=== PATIENT | male | born 1995 | race Caucasian/White ===

== ENCOUNTER 2019-01-25 09:38 | Emergency (ER) | payer MEDICAID ==
[~2019-01-25] VITALS: Ht 180.3 cm; Wt 86.4 kg
[2019-01-25 10:00] VITALS: Ht 180.3 cm; Wt 86.4 kg
[2019-01-25] MEDS ORDERED: GENTAK3.5 GM LEFT EYE (11:01)
[2019-01-25] MEDS ORDERED: PREDNISONE20 MG PO (11:01)
[2019-01-25 11:31] VITALS: BP 116/74
== END 2019-01-25 11:15 | disposition home or self-care (01) ==
LOC: D.ER 09:38
DX: H10.32 Unspecified acute conjunctivitis, left eye (principal)

== ENCOUNTER 2019-02-16 20:38 | Inpatient (IN) | payer MEDICAID ==
[~2019-02-16] VITALS: Ht 180.3 cm; Wt 88.5 kg
[~2019-02-16 20:38] MED LIST: GENTAK3.5 GM LEFT EYE; PREDNISONE20 MG PO
[2019-02-16] MEDS ORDERED: KEFLEX500 MG PO (20:58)
[2019-02-16] MEDS ORDERED: SULFAMETHOXAZOL1 TA2 PO (20:59)
[2019-02-16 21:23] LABS: BASOPHILS 0.1 % (0-2); HEMATOCRIT 43.3 % (42.0-54.0); HEMOGLOBIN 15.4 g/dL (13.5-17.5); IMMATURE GRANULOCYTES 0.2 % (0-5); LYMPHOCYTES 13.6 % (15-50); MCH 30.1 pg (26.0-34.0); MCHC 35.6 g/dL (31.0-37.0); MCV 84.6 fL (80.0-100.0); MEAN PLATELET VOLUME 10.3 fL (7.4-10.4); MONOCYTES 4.6 % (2-11); NEUTROPHILS 80.5 % (40-80); PLATELET COUNT 156 10x3/uL (130-400); RBC 5.12 10x6/uL (4.20-6.10); RDW 13.1 % (11.5-14.5); WBC 10.4 10x3/uL (4.8-10.8)
[2019-02-16 21:52] LABS: ALBUMIN 2.9 g/dL (3.4-5.0); ALKALINE PHOSPHATASE 85 U/L (46-116); ALT (SGPT) 15 U/L (10-68); BILIRUBIN - TOTAL 0.43 mg/dL (0.2-1.3); CALC OSMOLALITY 268 mosm/kg (275-300); CALCIUM 8.9 mg/dL (8.5-10.1); CARBON DIOXIDE 27.2 mmol/L (21.0-32.0); CHLORIDE - SERUM 99 mmol/L (98-107); CREATININE - SERUM 0.9 mg/dL (0.6-1.3); GLUCOSE 93 mg/dL (74-106); POTASSIUM - SERUM 3.2 mmol/L (3.5-5.1); SODIUM 135 mmol/L (136-145); UREA NITROGEN 10 mg/dL (7-18); eGFR NON AFRICAN AMERICAN > 90 mL/min (90-120)
[2019-02-17] VITALS (11 sets, daily range): BP systolic 100–147; BP diastolic 43–87; BMI 27.2
--- NOTE | 2019-02-17 00:18 | NUR ---
INFUSION OF ZOSYN COMPLETE AT 0014.
[2019-02-17 00:31] LABS: ERYTHROCYTE SEDIMENTATION RATE 4 mm/hr (0-15)
--- NOTE | 2019-02-17 00:50 | NUR ---
RECEIVED TO ROOM VIA WHEELCHAIR FROM ER. ALERT ORIENTED. RESP UNLABORED.RIGHT KNEE RED AND EDEMATOUS.WARM TO TOUCH. SL TO RFA WIHTOUT REDNESS OR EDEMA NOTED.CL IN REACH
[2019-02-17 04:07] LABS: BASOPHILS 0.1 % (0-2); HEMATOCRIT 39.9 % (42.0-54.0); HEMOGLOBIN 14.1 g/dL (13.5-17.5); IMMATURE GRANULOCYTES 0.2 % (0-5); LYMPHOCYTES 14.3 % (15-50); MCH 29.6 pg (26.0-34.0); MCHC 35.3 g/dL (31.0-37.0); MCV 83.8 fL (80.0-100.0); MEAN PLATELET VOLUME 10.3 fL (7.4-10.4); MONOCYTES 5.7 % (2-11); NEUTROPHILS 78.7 % (40-80); PLATELET COUNT 162 10x3/uL (130-400); RBC 4.76 10x6/uL (4.20-6.10); RDW 13.1 % (11.5-14.5); WBC 8.7 10x3/uL (4.8-10.8)
[2019-02-17 04:22] LABS: ALBUMIN 2.4 g/dL (3.4-5.0); ALKALINE PHOSPHATASE 77 U/L (46-116); ALT (SGPT) 17 U/L (10-68); BILIRUBIN - TOTAL 0.51 mg/dL (0.2-1.3); CALC OSMOLALITY 272 mosm/kg (275-300); CALCIUM 8.4 mg/dL (8.5-10.1); CARBON DIOXIDE 24.9 mmol/L (21.0-32.0); CHLORIDE - SERUM 102 mmol/L (98-107); CREATININE - SERUM 0.8 mg/dL (0.6-1.3); GLUCOSE 104 mg/dL (74-106); POTASSIUM - SERUM 3.5 mmol/L (3.5-5.1); PROTEIN - SERUM 6.1 g/dL (6.4-8.2); SODIUM 137 mmol/L (136-145); UREA NITROGEN 9 mg/dL (7-18); eGFR NON AFRICAN AMERICAN > 90 mL/min (90-120)
--- NOTE | 2019-02-17 09:00 | NUR ---
ALERT AND ORIENTEDX4 WITH COMPLAINTS OF RLE PAIN. ERRYTHERMA AND EDEMA NOTED TO RLE OF KNEE AND ABLOVE AND BELOW. WITH TENDERNESS NOTED. dR. CANNON NOTIFIED FOR PAIN MANAGEMENT WITH NEW ORDER TO CHANGE TO DILAUDID. FAMILY PRESENT AND ENCOURAGED TO USE CALL LIGHT FOR ASSIST. CONTINUES NPO STATUS.
[2019-02-18] VITALS (7 sets, daily range): BP systolic 103–148; BP diastolic 58–87
--- NOTE | 2019-02-18 02:14 | OP ---
PATIENT NAME: SOBEIDA LEE MEDICAL RECORD: [id number] :[birth year] LOCATION:D.MS [id number] ADMISSION DATE:02/16/19 SURGEON: CALE CANNON DO DATE OF OPERATION: 02/17/2019 PROCEDURE PERFORMED: Right knee incision and debridement. PREOPERATIVE DIAGNOSIS: Right septic knee. POSTOPERATIVE DIAGNOSIS: Right septic knee. INDICATIONS: Mr. Lee is a 24-year-old male that fell and sustained a laceration to his right knee last Wednesday. He went to an ER where he was stitched up and then returned 2 days later having redness at the area. They gave him more oral antibiotics. He then came to the Emergency Room at [facility] with purulence pouring out of his knee and erythema, cellulitis all the way down his leg. He was admitted, put on vancomycin and Zosyn and put on the schedule for today. He had increased CRP and ESR; however, his white count did not go up, but due to the purulence, decided we do an I&D and due to the erythema and the cellulitis been of right choice. He was informed of the risks including continued infection, need for further surgery, damage to nerves and vessels in the area, loss of cartilage, damage to the knee itself and he signed the consent and the continued need for IV antibiotics. SURGEON: Cale Cannon DO DESCRIPTION OF PROCEDURE: The patient was taken to the operative suite, laid in supine position, given general anesthetic. He was already on antibiotics on the floor. The right lower extremity was prepped and draped in a sterile fashion. Timeout was performed. Everyone was in agreeance with the correct side, site, patient and procedure. Incision began over the laceration and it was extended proximally and distally. As soon as we made the incision, purulence came pouring out. This was cultured and then the infection tracked almost circumferentially around the knee, pockets of purulent fluid. This was irrigated with 3 liters of normal saline. Then, the knee joint capsule itself was swollen and a medial parapatellar approach was done, but purulence came out of there as well and this was cultured as well and then 6 more liters of fluid were used 4-1/2 in the knee and 4-1/2 outside of the knee to irrigate it. A large drain was then placed in the knee joint coming out the lateral aspect. Then the capsular incision was closed with #2 Ethibond in [id number] fashion. A drain was then placed on the layer above the capsule and brought it through the lateral knee as well. The skin was then closed with 2-0 Vicryl in an inverted interrupted fashion and then a ZipLine was placed on the knee. Adaptic, 4 x 4s, ABD, Webril and Tomy wrap were then wrapped around the knee. The drains were secured with Tegaderms. He was awakened and taken to recovery in stable condition. Blood loss was [id number] mL. COMPLICATIONS: None. TRANSINT:[id number] Voice Confirmation ID: [id number] DOCUMENT ID: [id number] OPERATIVE REPORT [id number] SOBEIDA LEE MICHAEL D, DO at 0214 CC: [id number] DICTATION DATE: 02/17/192135 HEEL GOUGER: 02/17/19 3403 ADM IN [facility] [address] [place] [address]
[2019-02-18 06:47] LABS: HEMATOCRIT 34.1 % (42.0-54.0); HEMOGLOBIN 11.7 g/dL (13.5-17.5); MCH 29.2 pg (26.0-34.0); MCHC 34.3 g/dL (31.0-37.0); MEAN PLATELET VOLUME 10.3 fL (7.4-10.4); RBC 4.01 10x6/uL (4.20-6.10); WBC 7.1 10x3/uL (4.8-10.8)
--- NOTE | 2019-02-18 07:44 | NUR ---
PT LYING IN BED, TOOL GRINDER SET UP OPERATOR GEAR EMPTY, CHANGED TOOL GRINDER SET UP OPERATOR GEAR FOR PT, PT STATED PAIN IS STILL AT A 10 WILL SEE IF HE HAS BREAKTHROUGH PAIN MEDS ORDERED, SITE IS RED AND SWOLLEN. WARM TO TOUCH, PT STATED HE HAS NOT URINATED SINCE BEGINNING OF SURGERY AND PAIN IS SO BAD THAT IT HURTS TO EVEN GET STREAM GOING. STATES HE DOES NOT HAVE THE URGE TO URINATE AT THIS TIME BUT WILL LET ME KNOW WHEN HE DOES, NO ABD PAIN VOICED, SOFT TO TOUCH WILL CONTINUE TO MONITOR.
--- NOTE | 2019-02-18 18:50 | NUR ---
PT WAS GIVEN IMG OF DILAUDID AFTER IV WAS RESITED AND PT FRIEND JUST CAME TO DESK STATING PT IS STILL IN A LOT OF PAIN. HAVE BEEN ALTERNATING BETWEEN ALL OF PATIENTS MEDS WILL SEE WHAT DR CANNON WOULD LIKE TO DO NEXT. CL IN REACH FRIEND AT BEDSIDE
--- NOTE | 2019-02-18 19:14 | NUR ---
I have reviewed this patient and I concur with the Shift Assessment completed by the Licensed Practical Nurse today this shift.
--- NOTE | 2019-02-18 19:53 | NUR ---
PATIEN IN BED SLEEPING, WITH NO NEEDS NOTED OR STATED MOTHER AT BEDSIDE. CALL LIGHT IN REACH. IV INTACT AND PATEN. DRAINS IN PLACE TO RIGHT KNEE.
[2019-02-19] VITALS: BP 110/68
--- NOTE | 2019-02-19 01:01 | NUR ---
PT C/O NOT HAVING MUCH URIN OUT TODAY, AND WAS UNABLE TO URNAITE. BLADDER SCAN DONE WITH 771ML SHOWING CALL TO DR CANNON WITH NEW ORDER FOR IN OUT CATH . IN AND OUT CATH COMPLETED WITH 800 ML OF TAMARA UREN OUT.
[2019-02-19 04:00] VITALS: BP 114/67
[2019-02-19 06:59] LABS: HEMATOCRIT 34.3 % (42.0-54.0); MCH 29.1 pg (26.0-34.0); MCV 83.1 fL (80.0-100.0); MEAN PLATELET VOLUME 10.5 fL (7.4-10.4); RBC 4.13 10x6/uL (4.20-6.10); RDW 12.8 % (11.5-14.5); WBC 4.9 10x3/uL (4.8-10.8)
[2019-02-19 08:32] VITALS: BP 115/61
--- NOTE | 2019-02-19 10:42 | NUR ---
RECEIVED CALL FROM LUIS ANGEL IN PHARMACY, PT VAN TROUGH STATES 139 PT STATES HE HAD TO HAVE IN AND OUT DONE THIS MORNING DUE TO BLADDER SCAN SHOWED 800 BUT HE JUST DOESNT WANT TO URINATE DUE TO PAIN IN KNEE, PT STATES PAIN IS AT A 7 AND REQUESTED PRN PAIN MEDS, ADMINISTERED IV MEDS, NO OTHER NEEDS PLACED ORDER FOR STAT LABS TO [facility] BMP STAT. CONTIUE WITH PLAN OF CARE
[2019-02-19 11:26] LABS: ALBUMIN 1.7 g/dL (3.4-5.0); ANION GAP 15.2 mmol/L (8-16); BILIRUBIN - TOTAL 0.68 mg/dL (0.2-1.3); CALCIUM 7.7 mg/dL (8.5-10.1); CREATININE - SERUM 6.2 mg/dL (0.6-1.3); POTASSIUM - SERUM 4.2 mmol/L (3.5-5.1); PROTEIN - SERUM 4.5 g/dL (6.4-8.2)
[2019-02-19 11:51] LABS: VANCOMYCIN - TROUGH 59.2 ug/mL (10.0-20.0)
--- NOTE | 2019-02-19 12:51 | NUR ---
PT LYING IN BED STATED HE HAS GOTTEN UP TO USE RESTROOM BUT STILL ONLY GOING A LITTLE. PT HAS SODAS ON BEDSIDE AND HAS ONLY DRANK A LITTLE. INCREASED 1/2 NS TO [address] CANNON AND GAVE PT TALL CUP OF ICE WATER AND ENCOURAGED HIM TO DRINK MUCH HE CAN OFTEN HE CAN. CL IN REACH CONTINUE WITH PLAN OF CARE PT STATES PAIN IS OK WHEN LYING STILL BUT WHEN HE MOVES IT SHOOTS TO A 7.
[2019-02-19 13:28] VITALS: BP 101/53
--- NOTE | 2019-02-19 14:06 | NUR ---
I have reviewed this patient and I concur with the Shift Assessment completed by the Licensed Practical Nurse today this shift.
[2019-02-19 15:06] VITALS: Ht 180.3 cm; Wt 88.5 kg
--- NOTE | 2019-02-19 16:01 | NUR ---
PT WAS SEEN BY DR JACOBO AND EXPLAINED HOW LAB WORK IS SHOWING THAT KIDNEY FUNCTION IS NOT UP TO PAR. EXPLAINED THAT CATHETER WOULD BE BEST FOR PT SINCE HE IS NOT URINATING WELL. PT WAS VERY UPSET ABOUT HAVING CATHETER PLACED BUT THEN AGREED TO HAVE IT DONE. HAD [address]ER[address] PLACE CATHETER SO PT WOULD FEEL BETTER ABOUT HAVING CATHETER. OUTPUT WAS 800 WHEN CATHETER PLACED. PT STATED PAIN IS AT A 5 RIGHT NOW. CONTINUE WITH PLAN OF CARE
[2019-02-19 20:00] VITALS: BP 135/73
--- NOTE | 2019-02-19 22:17 | NUR ---
PATIENT ALERT AND ORENTED ABLE TO VOICE NEEDS TO STAFF. C/O NEEDING TO PEE. F/C IN PLACE AND PATEN WITH YELLOW URINE TO BAG. BLADER SCAN COMPLETED WITH 7 ML OF URIN SHOWN. EDUCATED PATIENT THAT HIS BLADDER MY BE SORE DUE TO HOLDING URIN. C/O NOT HAVING A BM YET AND NEEDING TO. REDUCATED HIM THAT WAS WHY HE WAS PLACED ON THE SENOKOT , HE HAD REFUSED LAST NIGHT. THAT WITH PAIN MEDACATION CAN INCREASE CONSTIPATION. THAT IT IS IMPORTANT TO DRING FLUIDS, TAKE HIS STOOL SOFNERS AND MOVEMENT WILL HELP. PT STATED HE UNDERSTOD.
[2019-02-20 04:00] VITALS: BP 130/70
[2019-02-20 06:04] LABS: BASOPHILS 0.2 % (0-2); EOSINOPHILS 1.2 % (0-7); HEMATOCRIT 32.3 % (42.0-54.0); HEMOGLOBIN 11.7 g/dL (13.5-17.5); IMMATURE GRANULOCYTES 0.2 % (0-5); LYMPHOCYTES 24.3 % (15-50); MCH 29.3 pg (26.0-34.0); MCHC 36.2 g/dL (31.0-37.0); MEAN PLATELET VOLUME 10.6 fL (7.4-10.4); NEUTROPHILS 63.1 % (40-80); RDW 12.3 % (11.5-14.5); WBC 4.2 10x3/uL (4.8-10.8)
[2019-02-20 06:10] LABS: MCV 80.8 fL (80.0-100.0); PLATELET COUNT 212 10x3/uL (130-400)
[2019-02-20 06:38] LABS: ALBUMIN 1.6 g/dL (3.4-5.0); ANION GAP 20.4 mmol/L (8-16); BILIRUBIN - TOTAL 0.69 mg/dL (0.2-1.3); CALCIUM 7.8 mg/dL (8.5-10.1); CARBON DIOXIDE 16.7 mmol/L (21.0-32.0); CREATININE - SERUM 7.4 mg/dL (0.6-1.3); POTASSIUM - SERUM 4.1 mmol/L (3.5-5.1); PROTEIN - SERUM 5.4 g/dL (6.4-8.2)
[2019-02-20 07:04] LABS: VANCOMYCIN - RANDOM 60.5 ug/mL (10.0-20.0)
[2019-02-20 08:41] VITALS: BP 144/78
[2019-02-20 14:01] VITALS: BP 142/80
--- NOTE | 2019-02-20 15:56 | NUR ---
PATIENT COMPLAINING ABOUT RIGHT ANKLE SWELLING. STATED THAT HE HAD HIS MOM TOOK MIRACLE WRAP OFF BECAUSE IT WAS HURTING HIM. CALLED DR. CANNON AND TOLD HIM THAT PATIENT IS WORRIED ABOUT ANKLE BEING SWOLLEN AND TOOK MIRACLE WRAP OFF OF IT. PHYSICIAN STATED THAT HE JUST PUT THAT MIRACLE WRAP BACK ON THE ANKLE THIS AM BC HE WAS TRYING TO DECREASE THE SWELLING. EXPLAINED TO PATIENT AT THIS TIME. VERBALIZED UNDERSTANDING. ELEVATED RIGHT FOOT ON PILLOW AND WENT TO GET ANOTHER PILLOW, WHEN CAME BACK IN ROOM MOTHER STATED THAT HER AND SON WANT HIM TO BE TRANSFERRED TO ANOTHER HOSPITAL. STATED HE HASNT HAD A BATH, OR A BOWEL MOVEMENT, AND THAT THEY ARE WORRIED ABOUT HIS KIDNEYS BECAUSE OF THE ANKLE SWELLING ON THE RIGHT. SPOKE WITH CM, AND THEN TO NM. SPOKE BACK WITH PATIENT AND MOTHER AND EXPLAINED THAT IN ORDER FOR THEM TO GO TO ANOTHER HOSPITAL THAT THEY WOULD HAVE TO FIND A RECIEVING PHYSICIAN OR LEAVE AMA AND JUST GO TO ANOTHER HOSPITAL. VERBALIZED UNDERSTANDING. ALSO TOLD THEM THAT I COULD CALL DR. JACOBO OR HIS GUM WORKER AND HAVE THEM COME TALK TO THEM. MOTHER STATED SHE WOULD JUST CALL [facility] AND GET A DOCTOR.
--- NOTE | 2019-02-20 16:30 | NUR ---
RADIOLOGICAL TECHNICIAN OFFERED SHOWER TO PATIENT AT THIS TIME. PATIENT REFUSED.
--- NOTE | 2019-02-20 16:44 | MORECARE ---
CASE MANAGEMENT DISCHARGE SUMMARY PATIENT: SOBEIDA LEE UNIT: [id number] ADM DATE: 02/16/19 AGE: 24 : [birth year] SEX: M ROOM/BED: D.2223 AUTHOR: DIOR REID PHYSICIAN: REFERRING PHYSICIAN: MELANY CANNON DO DATE OF SERVICE: 02/20/19 Discharge Plan Patient Name: SOBEIDA LEE Facility: [facility]:[place] : 1995 Planned Disposition: Anticipated Discharge Date: Discharge Date: Expected LOS: Initial Reviewer: [id number] Initial Review Date: 02/20/2019 Generated: 02/20/19 5:44 pm Comments DCP- Discharge Planning Updated by [id number]: Rand Brooks on 02/20/19 3:[address] Patient Name: SOBEIDA LEE Admission Status: ER Accout number: [id number] Admission Date: 02-16-2019 : 1995 Admission Diagnosis:PYOGENIC ARTHRITIS, UNSPECIFIED Attending: MELANY CANNON Current LOS: 4 Anticipated DC Date: Planned Disposition: Primary Insurance: MEDICAID [place] Discharge Planning Comments: CM SPOKE WITH PATIENT AND MOTHER PER THEIR REQUEST. THEY WANT TO BE TRANSF[facility]ED TO [facility] FOR FURTHER CARE. I SPOKE TO PATIENT AND MOTHER AND EXPLAINED TO THEM THAT IF HE IS TRANSFERED AND ITS NOT FOR HIGHER LEVEL OF CARE THAT THEY WOULD BE RESPONSIBLE FOR PAYMENT OF TRANSPORT BY EMS. MOTHER STATES SHE WOULD AGREE TO THAT. I ALSO EXPLAINED TO THEM THAT THERE MUST BE AN ACCEPTING PHYSICIAN AT THE OTHER FACILITY ALSO. DR CANNON IS COMING TO SEE PATIENT TODAY AND I WILL INFORM THE NURSE OF THIS. Assistant Professor Of Art: Rand Brooks DCPIA - Discharge Planning Initial Assessment Updated by [email or web address]: Rand Brooks on 02/20/19 4:39 pm * Is the patient Alert and Oriented? Yes * PCP NONE * Pharmacy [facility] * Preadmission Environment Home Alone * ADLs Independent * Additional services required to return to the preadmission environment? Yes * Can the patient safely return to the preadmission environment? No * Has this patient been hospitalized within the prior 30 days at any hospital? No Patient Name: SOBEIDA LEE Page [id number] at 1644 All edits/amendments must be made on the electronic document DICTATION DATE: 02/20/191643 CREATIVE INTERN: DESIRE 02/20/191643 RPT#: [id number] DC DATE: STATUS: ADM IN [facility] [address] [place] [address] END OF REPORT
--- NOTE | 2019-02-20 17:00 | NUR ---
DR CANNON IN ROOM SPEAKING WITH PATIENT ABOUT BEING TRANSFERRED TO [facility]. MOTHER AT SIDE.
[2019-02-20 17:15] VITALS: BP 156/82
[2019-02-20 18:04] LABS: APPEARANCE CLEAR (CLEAR); BILIRUBIN NEGATIVE (NEGATIVE); COLOR YELLOW (YELLOW); GLUCOSE NEGATIVE (NEGATIVE); KETONE NEGATIVE (NEGATIVE); NITRITE NEGATIVE (NEGATIVE); PROTEIN TRACE mg/dL (NEGATIVE); UROBILINOGEN NORMAL (NORMAL)
--- NOTE | 2019-02-20 19:30 | NUR ---
PT LAYING IN BED WITH MOTHER AT BEDSIDE. NO SIGNS OF DISTRESS NOTED, A/O. VOICES NO PAIN OR OTHER NEEDS AT THIS TIME. WILL CONTINUE TO MONITOR.
[2019-02-20 20:00] VITALS: BP 175/91
--- NOTE | 2019-02-21 03:00 | NUR ---
ASSESSED TEMP, 99.2 AND PT SHIVERING. TOOK OFF BLANKET AND ENCOURAGED COOL FLUIDS. WILL CONTINUE TO MONITOR.
--- NOTE | 2019-02-21 06:30 | NUR ---
REASSESSED TEMP- 100.1, MOTHER REQUESTION MEDICATION TO LOWER TEMP. PAGED WINDER TENDER DOCTOR. WILL PASS ON IN REPORT FAMILY'S CONCERN. CONTINUE WITH PLAN OF CARE.
[2019-02-21 06:57] LABS: BASOPHILS 0.2 % (0-2); EOSINOPHILS 1.2 % (0-7); HEMATOCRIT 29.5 % (42.0-54.0); HEMOGLOBIN 10.9 g/dL (13.5-17.5); IMMATURE GRANULOCYTES 0.4 % (0-5); LYMPHOCYTES 15.7 % (15-50); MCH 29.4 pg (26.0-34.0); MCHC 36.9 g/dL (31.0-37.0); MCV 79.5 fL (80.0-100.0); MEAN PLATELET VOLUME 10.3 fL (7.4-10.4); MONOCYTES 7.6 % (2-11); NEUTROPHILS 74.9 % (40-80); RBC 3.71 10x6/uL (4.20-6.10); RDW 12.5 % (11.5-14.5); WBC 4.9 10x3/uL (4.8-10.8)
[2019-02-21 07:23] LABS: PLATELET COUNT 269 10x3/uL (130-400)
[2019-02-21 07:53] LABS: ALBUMIN 2.1 g/dL (3.4-5.0); ANION GAP 18.5 mmol/L (8-16); BILIRUBIN - TOTAL 0.46 mg/dL (0.2-1.3); CARBON DIOXIDE 23.1 mmol/L (21.0-32.0); CREATININE - SERUM 8.4 mg/dL (0.6-1.3); POTASSIUM - SERUM 3.6 mmol/L (3.5-5.1); PROTEIN - SERUM 5.1 g/dL (6.4-8.2); VANCOMYCIN - RANDOM 42.7 ug/mL (10.0-20.0)
--- NOTE | 2019-02-21 08:08 | NUR ---
PATIENT O2 LEVEL IN 80'S O2 PLACED. EXPLAINED TO PATIENT THAT HE NEEDED TO WORK ON HIS IS AND GET OUT OF BED TODAY AND SIT IN THE CHAIR. MOTHER AT BEDSIDE. STATED THAT IS WHAT THE DOCTOR SAID ALSO. PATIENT DID NOT RESPOND. IV INTACT. CALL LIGHT WITHIN REACH.
[2019-02-21 09:33] VITALS: BP 130/69
--- NOTE | 2019-02-21 10:01 | NUR ---
PATIENT OUT OF SHOWER AT THIS TIME. DRESSING TO KNEE CHANGED DUE TO OLD DRAINAGE ON DRESSING. NEW DRESSING APPLIED TO CLEAN INCISION. PATIENT REFUSES TO HAVE LEG WRAPPED FROM ANKLE TO KNEE DIRECTED BY PHYSICIAN. STATED THAT HE DOESNT WANT IT DONE BECAUSE IT IS TOO TIGHT AND CUTS OFF HIS CIRCULATION. MOTHER STATED THAT HIS LEG WAS DEFINATELY WRAPPED TO TIGHT BECAUSE IT IS PURPLE. EXPLAINED TO MOTHER THE LEG IS THAT COLOR DUE TO TRAMA AND SWELLING. EXPLAINED IF HIS CIRCULATION WERE BAD HIS LEG AND FOOT WOULD BE COLD AND THAT HE WOULDNT HAVE A PEDAL PULSE, WHICH PEDAL PULSE IS STRONG RIGHT NOW. PATIENT STATED HE DID NOT WANT IT DONE.
[2019-02-21 16:35] VITALS: BP 133/80
--- NOTE | 2019-02-21 18:32 | NUR ---
PATIENT IN BED WITH EYES CLOSED RESTING QUIETLY. IV INTACT. CALL LIGHT WITHIN REACH.
--- NOTE | 2019-02-21 19:40 | NUR ---
LAYING IN BED WITH MOTHER AT BEDSIDE. A/O AND SHOWS NO SIGNS OF DISTRESS. HINKLE IN PLACE WITH CLEAR YELLOW URINE. REDNESS AND SWELLING NOTED IN THE RIGHT LEG. DENIES PAIN OR OTHER NEEDS AT THIS TIME. CONTINUE WITH PLAN OF CARE.
[2019-02-21 20:00] VITALS: BP 157/81
[2019-02-22] VITALS: BP 159/82
[2019-02-22 04:45] LABS: BASOPHILS 0.3 % (0-2); EOSINOPHILS 2.1 % (0-7); HEMATOCRIT 27.4 % (42.0-54.0); HEMOGLOBIN 9.9 g/dL (13.5-17.5); IMMATURE GRANULOCYTES 0.6 % (0-5); LYMPHOCYTES 17.7 % (15-50); MCH 28.5 pg (26.0-34.0); MCHC 36.1 g/dL (31.0-37.0); MEAN PLATELET VOLUME 10.1 fL (7.4-10.4); NEUTROPHILS 68.3 % (40-80); PLATELET COUNT 268 10x3/uL (130-400); RBC 3.47 10x6/uL (4.20-6.10); RDW 12.3 % (11.5-14.5)
[2019-02-22 05:00] LABS: ALBUMIN 2.2 g/dL (3.4-5.0); BILIRUBIN - TOTAL 0.46 mg/dL (0.2-1.3); CALCIUM 7.9 mg/dL (8.5-10.1); CREATININE - SERUM 8.5 mg/dL (0.6-1.3); POTASSIUM - SERUM 3.1 mmol/L (3.5-5.1); PROTEIN - SERUM 5.5 g/dL (6.4-8.2); VANCOMYCIN - RANDOM 38.8 ug/mL (10.0-20.0)
[2019-02-22 05:01] LABS: ANION GAP 16.2 mmol/L (8-16); CARBON DIOXIDE 28.9 mmol/L (21.0-32.0)
--- NOTE | 2019-02-22 09:00 | NUR ---
PATIENT IS ALERT/ORIENT. CALL LIGHT WITHIN REACH. VOICES NO NEEDS AT THIS TIME. ANALISA CONTINUE WITH PLAN OF CARE
[2019-02-22 09:11] VITALS: BP 149/88
[2019-02-22 10:10] LABS: FUNGUS STAIN Final report (())
[2019-02-22 12:47] VITALS: BP 132/78
--- NOTE | 2019-02-22 15:24 | NUR ---
NUTRITION F/U PT TOLERATING REG DIET WITH GOOD INTAKE RECENT MEALS. WILL CONTINUE TO HONOR FOOD PREFERENCES, MONITOR PO INTAKE. RD FOLLOWING
[2019-02-22 17:01] VITALS: BP 139/78
[2019-02-22 20:00] VITALS: BP 149/86
--- NOTE | 2019-02-22 20:45 | NUR ---
AWAKE,ALERT.NO COMPLAITNS AT PRESENT. RESP UNLABORED. IV INFUSING TO RIGHT HAND WITHOUT REDNESS OR EDEMA NOTED. DRESSING TO RIGHT KNEE INTACT WITH DRIED DRAINAGE NOTED. REDNESS AND EDEMA NOTED TO RLE. FAMILY AT BEDSIDE.
[2019-02-23] VITALS: BP 127/82
--- NOTE | 2019-02-23 00:18 | NUR ---
FAMILY AT BEDSIDE. PT IS WITHOUT DISTRESS.
[2019-02-23 04:47] LABS: BASOPHILS 0.1 % (0-2); EOSINOPHILS 2.2 % (0-7); HEMATOCRIT 28.2 % (42.0-54.0); HEMOGLOBIN 10.2 g/dL (13.5-17.5); IMMATURE GRANULOCYTES 0.4 % (0-5); LYMPHOCYTES 18.1 % (15-50); MCH 28.7 pg (26.0-34.0); MCHC 36.2 g/dL (31.0-37.0); MCV 79.4 fL (80.0-100.0); MEAN PLATELET VOLUME 9.7 fL (7.4-10.4); MONOCYTES 8.8 % (2-11); NEUTROPHILS 70.4 % (40-80); PLATELET COUNT 269 10x3/uL (130-400); RBC 3.55 10x6/uL (4.20-6.10); RDW 12.3 % (11.5-14.5); WBC 6.8 10x3/uL (4.8-10.8)
[2019-02-23 05:12] LABS: ALBUMIN 2.3 g/dL (3.4-5.0); ANION GAP 14.2 mmol/L (8-16); BILIRUBIN - TOTAL 0.38 mg/dL (0.2-1.3); CREATININE - SERUM 8.5 mg/dL (0.6-1.3); POTASSIUM - SERUM 3.2 mmol/L (3.5-5.1); PROTEIN - SERUM 5.6 g/dL (6.4-8.2); VANCOMYCIN - RANDOM 31.5 ug/mL (10.0-20.0)
--- NOTE | 2019-02-23 07:57 | NUR ---
PT RESTING IN BED. NO SIGNS OF DISTRESS. IV TO RIGHT HAND PATENT NO REDNESS OR TENDERNESS. HAS JOLENE TO RIGHT KNEE SOME DRAINAGE. DENIES ANY FUTHER NEED A THIS TIME. CALL LIGHT IN REACH. BED LOW POSITION. FAMILY AT BEDSIDE.
[2019-02-23 09:15] VITALS: BP 156/87
[2019-02-23 13:10] VITALS: BP 150/89
[2019-02-23 18:10] VITALS: BP 142/88
--- NOTE | 2019-02-23 19:00 | NUR ---
BEDSIDE REPORT RECEIVED AND CARE OF PT ASSUMED. PT LYING IN LOW DUENAS'S POSITION WITH EYES CLOSED. IV TO RIGHT HAND PATENT WITH NS INFUSING AT 75 ML / HR. RIGHT KNEE ELEVATED, AND WARM TO THE TOUCH. POPLITEAL AND PEDAL PULSES PALPATED.
--- NOTE | 2019-02-23 20:12 | NUR ---
HS MEDICATIONS GIVEN TO INCLUDE XANAX PO PER REQUEST FOR ANXIETY / SLEEP. WILL CONTINUE TO MONITOR FOR NEEDS.
[2019-02-23 20:42] VITALS: BP 145/77
[2019-02-24 00:39] VITALS: BP 154/84
[2019-02-24 04:40] VITALS: BP 157/84
--- NOTE | 2019-02-24 05:01 | NUR ---
PT RESTED WELL OVERNIGHT. LESS SWELLING ON RLE. WILL CONTINUE TO MONITOR FOR NEEDS.
[2019-02-24 05:10] LABS: BASOPHILS 0.1 % (0-2); EOSINOPHILS 2.4 % (0-7); HEMATOCRIT 28.5 % (42.0-54.0); IMMATURE GRANULOCYTES 0.9 % (0-5); LYMPHOCYTES 14.3 % (15-50); MCH 28.3 pg (26.0-34.0); MCHC 35.1 g/dL (31.0-37.0); MCV 80.7 fL (80.0-100.0); MEAN PLATELET VOLUME 9.8 fL (7.4-10.4); MONOCYTES 7.4 % (2-11); NEUTROPHILS 74.9 % (40-80); PLATELET COUNT 294 10x3/uL (130-400); RBC 3.53 10x6/uL (4.20-6.10); RDW 12.4 % (11.5-14.5); WBC 7.8 10x3/uL (4.8-10.8)
[2019-02-24 05:35] LABS: ALBUMIN 2.5 g/dL (3.4-5.0); ANION GAP 12.6 mmol/L (8-16); BILIRUBIN - TOTAL 0.35 mg/dL (0.2-1.3); CARBON DIOXIDE 30.6 mmol/L (21.0-32.0); CREATININE - SERUM 8.5 mg/dL (0.6-1.3); POTASSIUM - SERUM 3.2 mmol/L (3.5-5.1); PROTEIN - SERUM 5.9 g/dL (6.4-8.2); VANCOMYCIN - RANDOM 27.4 ug/mL (10.0-20.0)
[2019-02-24 08:14] VITALS: BP 121/79
--- NOTE | 2019-02-24 10:01 | NUR ---
PROVENA WOUND VAC REMOVED ORDERED BY DR. CANNON. MEPILEX DRESSING PLACED. INCISION LOOKS CLEAN WITH NO SIGNS OF INFECTION AT THIS TIME. IV INTACT. CALL LIGHT WITHIN REACH.
--- NOTE | 2019-02-24 11:24 | NUR ---
PATIENT STATED HE HAS URGE TO VOID. UNCLAMPED CATH AT THIS TIME. EXPLAINED WE WOULD RECLAMP SOON. VERBALIZED UNDERSTANDING.
[2019-02-24 11:35] LABS: ERYTHROCYTE SEDIMENTATION RATE 56 mm/hr (0-15)
--- NOTE | 2019-02-24 13:31 | NUR ---
HINKLE CATHETER CLAMPED AT THIS TIME.
[2019-02-24 13:37] VITALS: BP 157/83
--- NOTE | 2019-02-24 14:08 | NUR ---
PATIENT STATED HE NEEDED TO VOID AND CATHETER REMOVED AT THIS TIME. EXPLAINED TO VOID IN A URINAL FOR MEASUREMENT. VERBALIZED UNDERSTANDING. CALL LIGHT WITHIN REACH.
--- NOTE | 2019-02-24 16:32 | NUR ---
PATIENT STOOL SAMPLE TAKEN TO LAB. WAS CALLED BY ELAYNE IN THE LAB AND SAID THAT HIS STOOL DOES NOT MEET THE CRITIRIA FOR CDIFF TEST. SO TEST NOT COMPLETED. PATIENT VOIDED 400 IN URINAL AT THIS TIME WITH NO PROBLEMS. WILL CONTINUE TO MONITOR.
[2019-02-24 16:41] VITALS: BP 162/73
--- NOTE | 2019-02-24 18:51 | NUR ---
PATIENT IN BED WITH EYES CLOSED RESTING QUIETLY. IV INTACT. NO SIGNS OF DISTRESS. CALL LIGHT WITHIN REACH.
--- NOTE | 2019-02-24 19:00 | NUR ---
BEDSIDE REPORT RECEIVED AND CARE OF PT ASSUMED. PT LYING IN SUPINE POSITION WITH EYES CLOSED. IV TO RIGHT HAND SALINE LOCKED. DRESSING ON RIGHT LEG CLEAN AND DRY. WILL MONITOR FOR NEEDS.
[2019-02-24 20:00] VITALS: BP 139/84
--- NOTE | 2019-02-24 20:45 | NUR ---
HS MEDICATIONS GIVEN. PT REFUSED HEPARIN... HE IS AMBULATING NOW. WILL CONTINUE TO MONITOR FOR NEEDS.
--- NOTE | 2019-02-24 21:30 | NUR ---
BLADDER SCAN POST VOID YEILDED 63 ML OF RETAINED URINE.
[2019-02-25 04:00] VITALS: BP 140/80
--- NOTE | 2019-02-25 05:00 | NUR ---
BLADDER SCAN POST VOID REVEALS ONLY 32 ML RETAINED URINE.
[2019-02-25 06:47] LABS: BASOPHILS 0.3 % (0-2); EOSINOPHILS 2.5 % (0-7); HEMATOCRIT 26.8 % (42.0-54.0); HEMOGLOBIN 9.4 g/dL (13.5-17.5); IMMATURE GRANULOCYTES 0.9 % (0-5); LYMPHOCYTES 17.1 % (15-50); MCH 28.6 pg (26.0-34.0); MCHC 35.1 g/dL (31.0-37.0); MCV 81.5 fL (80.0-100.0); MEAN PLATELET VOLUME 9.7 fL (7.4-10.4); MONOCYTES 6.6 % (2-11); NEUTROPHILS 72.6 % (40-80); PLATELET COUNT 288 10x3/uL (130-400); RBC 3.29 10x6/uL (4.20-6.10); RDW 12.6 % (11.5-14.5); WBC 7.7 10x3/uL (4.8-10.8)
[2019-02-25 07:15] LABS: ANION GAP 13.3 mmol/L (8-16); CALCIUM 8.3 mg/dL (8.5-10.1); CREATININE - SERUM 7.8 mg/dL (0.6-1.3); POTASSIUM - SERUM 3.3 mmol/L (3.5-5.1); VANCOMYCIN - RANDOM 21.6 ug/mL (10.0-20.0)
[2019-02-25] MEDS ORDERED: oxyCODONE IR PO (09:08)
[2019-02-25] MEDS ORDERED: FLOMAX0.4 MG PO (09:08)
[2019-02-25] MEDS ORDERED: VIBRAMYCIN 100100 MG PO (09:09)
[2019-02-25] MEDS ORDERED: OMNICEF300 MG PO (09:09)
[2019-02-25] MEDS ORDERED: VISTARIL50 MG PO (09:09)
[2019-02-25 09:35] VITALS: BP 146/89
--- NOTE | 2019-02-25 11:34 | NUR ---
PT RESTING IN BED. NO SIGNS OF DISTRESS. IV TO RIGHT HAND PATENT NO REDNESS OR TENDERNESS. HAS DRESSING TO RIGHT KNEE CLEAN AND INTACT. DENIES ANY FUTHER NEED AT THIS TIME. CALL LIGHT IN REACH. BED LOW POSITION. FAMILY AT BEDSIDE.
--- NOTE | 2019-02-25 12:32 | NUR ---
DISCHARGE INSTRUCTIONS GIVEN. SEEMS TO UNDERSTAND INSTRUCTIONS. IV OUT TIP INTACT. LEFT WITH HOSPITAL STAFF TO GO HOME IN PERSONAL RIDE WITH FAMILY MEMEBER TO GO HOME.
--- NOTE | 2019-02-27 12:09 | MORECARE ---
CASE MANAGEMENT DISCHARGE SUMMARY PATIENT: SOBEIDA LEE UNIT: [id number] ADM DATE: 02/16/19 AGE: 24 : [birth year] SEX: M ROOM/BED: D.2223 AUTHOR: DIOR REID PHYSICIAN: REFERRING PHYSICIAN: MELANY CANNON DO DATE OF SERVICE: 02/27/19 Discharge Plan Patient Name: SOBEIDA LEE Facility: [facility]:[place] : 1995 Planned Disposition: Anticipated Discharge Date: Discharge Date: 02/25/2019 Expected LOS: Initial Reviewer: [email or web address] Initial Review Date: 02/20/2019 Generated: 02/27/19 1:09 pm DCP- Discharge Planning Updated by [email or web address]: Rand Brooks on 02/20/19 3:[address] Patient Name: SOBEIDA LEE Admission Status: ER Accout number: [id number] Admission Date: 02-16-2019 : 1995 Admission Diagnosis:PYOGENIC ARTHRITIS, UNSPECIFIED Attending: MELANY CANNON Current LOS: 4 Anticipated DC Date: Planned Disposition: Primary Insurance: MEDICAID [place] Discharge Planning Comments: CM SPOKE WITH PATIENT AND MOTHER PER THEIR REQUEST. THEY WANT TO BE TRANSFERED TO [facility] FOR FURTHER CARE. I SPOKE TO PATIENT AND MOTHER AND EXPLAINED TO THEM THAT IF HE IS TRANSFERED AND ITS NOT FOR HIGHER LEVEL OF CARE THAT THEY WOULD BE RESPONSIBLE FOR PAYMENT OF TRANSPORT BY EMS. MOTHER STATES SHE WOULD AGREE TO THAT. I ALSO EXPLAINED TO THEM THAT THERE MUST BE AN ACCEPTING PHYSICIAN AT THE OTHER FACILITY ALSO. DR CANNON IS COMING TO SEE PATIENT TODAY AND I WILL INFORM THE NURSE OF THIS. [employer] Agent: Rand Brooks DCPIA - Discharge Planning Initial Assessment Updated by [id number]: Rand Brooks on 02/20/19 4:39 pm * Is the patient Alert and Oriented? Yes * PCP NONE * Pharmacy [facility] * Preadmission Environment Home Alone * ADLs Independent * Additional services required to return to the preadmission environment? Yes * Can the patient safely return to the preadmission environment? No * Has this patient been hospitalized within the prior 30 days at any hospital? No Last DP export: 02/20/19 3:44 p Patient Name: SOBEIDA LEE Page [phone] at 1209 All edits/amendments must be made on the electronic document DICTATION DATE: 02/27/191208 BINDERY OPERATOR: DESIRE 02/27/191208 RPT#: [id number] DC DATE:02/25/19 STATUS: DIS IN [facility] [address] [place] [address] END OF REPORT
[2019-02-28 19:08] LABS: AEROBE ID Final report (()); RESULT 1 Clostridium tertium (())
[2019-03-20 07:08] LABS: FUNGUS MYCOLOGY CULTURE Final report (())
== END 2019-02-25 12:38 | disposition home or self-care (01) | DRG 856 ==
LOC: D.ER 20:38 → D.MS 23:08 → D.SDCHOLD 02-20 08:02 → D.MS 02-20 08:07
PROVIDERS: Emergency Medicine; Family Medicine; Internal Medicine Nephrology; ADMIT Orthopaedic Surgery; ATTEND Orthopaedic Surgery
PROC: 0S9C0ZZ Drainage of Right Knee Joint, Open Approach (ICD-10-PCS; principal; 2019-02-17 16:45)
DX: T81.42XA Infection following a procedure, deep incisional surgical site, initial encounter (principal); N17.0 Acute kidney failure with tubular necrosis; N00.8 Acute nephritic syndrome with other morphologic changes; M00.9 Pyogenic arthritis, unspecified; L03.115 Cellulitis of right lower limb; N17.9 Acute kidney failure, unspecified; E87.1 Hypo-osmolality and hyponatremia; T36.8X5A Adverse effect of other systemic antibiotics, initial encounter; N32.0 Bladder-neck obstruction

== ENCOUNTER → 2019-03-16 10:54 | Outpatient (CLI) | payer MEDICAID ==
[2019-02-19 15:06] VITALS: BMI 27.2
[~2019-03-16 10:54] MED LIST changes: +FLOMAX0.4 MG PO; +KEFLEX500 MG PO; +OMNICEF300 MG PO; +SULFAMETHOXAZOL1 TA2 PO; +VIBRAMYCIN 100100 MG PO; +VISTARIL50 MG PO; +oxyCODONE IR PO
[2019-03-16 11:18] LABS: BASOPHILS 1.5 % (0-2); EOSINOPHILS 3.9 % (0-7); HEMATOCRIT 32.8 % (42.0-54.0); HEMOGLOBIN 10.9 g/dL (13.5-17.5); IMMATURE GRANULOCYTES 0.2 % (0-5); LYMPHOCYTES 47.4 % (15-50); MCH 27.8 pg (26.0-34.0); MCHC 33.2 g/dL (31.0-37.0); MCV 83.7 fL (80.0-100.0); MONOCYTES 7.3 % (2-11); NEUTROPHILS 39.7 % (40-80); RBC 3.92 10x6/uL (4.20-6.10); RDW 13.8 % (11.5-14.5); WBC 4.7 10x3/uL (4.8-10.8)
[2019-03-16 11:22] LABS: PLATELET COUNT 217 10x3/uL (130-400)
[2019-03-16 12:59] LABS: ERYTHROCYTE SEDIMENTATION RATE 6 mm/hr (0-15)
== END | disposition home or self-care (01) ==
LOC: D.LABREF 10:54
PROVIDERS: ATTEND Orthopaedic Surgery
DX: M25.561 Pain in right knee (principal)

== ENCOUNTER → 2019-03-27 13:55 | Outpatient (CLI) | payer MEDICAID ==
[2019-02-19 15:06] VITALS: BMI 27.2
== END | disposition home or self-care (01) ==
LOC: D.MRI 03-17 10:00
PROVIDERS: ATTEND Orthopaedic Surgery
DX: M00.9 Pyogenic arthritis, unspecified (principal)

== ENCOUNTER 2019-07-22 07:50 | Emergency (ER) | payer OTHER ==
[2019-07-22 08:00] VITALS: Ht 180.3 cm
[2019-07-22] MEDS ORDERED: AUGMENTIN 875-11 TAB PO ×2 (08:26→08:28)
[2019-07-22 09:34] VITALS: BP 136/87
== END 2019-07-22 09:35 | disposition home or self-care (01) ==
LOC: D.ER 07:50
DX: H66.92 Otitis media, unspecified, left ear (principal); J01.00 Acute maxillary sinusitis, unspecified

== ENCOUNTER 2019-07-24 22:40 | Emergency (ER) | payer OTHER ==
[~2019-07-24] VITALS: Ht 180.3 cm; Wt 100.0 kg
[~2019-07-24 22:40] MED LIST changes: +AUGMENTIN 875-11 TAB PO
[2019-07-24 22:47] VITALS: Ht 180.3 cm; Wt 100.0 kg
[2019-07-24] MEDS ORDERED: ZOFRAN ODT4 MG/UDTAB PO (23:21)
[2019-07-24] MEDS ORDERED: MEDROL DOSE PACK4 MG PO (23:21)
[2019-07-24] MEDS ORDERED: ZPAK PO (23:21)
[2019-07-24 23:53] VITALS: BP 136/76
== END 2019-07-24 23:53 | disposition home or self-care (01) ==
LOC: D.ER 22:40
DX: H66.93 Otitis media, unspecified, bilateral (principal); J06.9 Acute upper respiratory infection, unspecified; Z72.0 Tobacco use